=== PATIENT | male | born 1965 | race Caucasian/White ===

== ENCOUNTER 2021-05-15 08:09 | Day surgery (SDC) | payer OTHER ==
--- NOTE | 2021-05-15 08:09 | HP ---
DATE OF SURGERY: 05/15/2021 HISTORY OF PRESENT ILLNESS: The patient is a 55 year-old with no prior colonoscopy. No bloody stools. No change in bowel movements. No pain. Family history of grandmother had colon cancer. PAST MEDICAL HISTORY: He denied any chronic illnesses. PAST SURGICAL HISTORY: Appendectomy. MEDICATIONS: Krill oil. ALLERGIES: NKDA. FAMILY HISTORY: Colon cancer. SOCIAL HISTORY: No smoking. Social alcohol use, no abuse. REVIEW OF SYSTEMS: Fourteen systems reviewed. No chest pain or palpitations. Other systems negative or noncontributory as above and per preadmission questionnaire. PHYSICAL EXAMINATION: GENERAL: No acute distress. HEENT: Sclerae nonicteric. NECK: No JVD. CHEST: Equal excursion, nonlabored breathing. CVS: Regular rate and rhythm. ABDOMEN: Soft. No peritoneal signs. EXTREMITIES: No significant edema. NEURO: Alert, oriented, moving extremities symmetrically. RECTAL: Deferred timed to endoscopy exam. PSYCH: Appropriate mood and affect. IMPRESSION: Need for screening colonoscopy. I feel the patient is a candidate. Risks and benefits explained in detail including but not limited to bleeding or infection, risk of bowel injury or perforation possibly requiring open procedure, risk of missed or nondiagnosis or incomplete exam possibly requiring barium enema, other studies or procedures, general risk of anesthesia or sedation, risk of bowel prep, risk of perforation possible requiring open procedure but not limited to. He understands and agrees to the planned procedure and will proceed with outpatient screening colonoscopy.
[2021-05-15] MEDS ORDERED: Lactated Ringers 1,000 ML IV SCH (08:30)
[2021-05-15] MEDS ORDERED: Lactated Ringers 1,000 ML IV ONE ×2 (09:16→11:50)
[2021-05-15] MEDS ORDERED: DIPRIVAN 200 MG/20 ML IV ONE ×2 (11:12→11:46)
[2021-05-15 12:42] VITALS: BP 130/73; O2SAT 100
[2021-05-15 12:50] VITALS: PULSE 56
--- NOTE | 2021-05-15 15:24 | OP ---
SURGERY DATE/TIME: 05/15/2021 1121 PREOPERATIVE DIAGNOSIS: Need for screening colonoscopy. POSTOPERATIVE DIAGNOSES: 1) Polyps proximal transverse colon near hepatic flexure. 2) Ascending colon. 3) Fair but limited bowel prep. 4) A few diverticula. 5) Withdrawal time approximately 10 minutes. 6) Photo documented appendiceal orifice area and ileocecal valve. 7) ASA Class II. PROCEDURES: 1) Colonoscopy to cecum with hot biopsy vague raised area of cecum versus hyperplasia of the fold. 2) Hot biopsy polypectomy piecemeal fashion removal of two small polyps proximal ascending colon removed in piecemeal fashion with hot biopsy forceps with brief bursts of cautery. 3) Hot snare polypectomy in piecemeal fashion of a 5 to 6 mm polyp proximal ascending colon removed in two pieces with hot snare polypectomy. 4) Hot snare polypectomy of 4 to 4.5 cm proximal transverse colon polyp near the hepatic flexure. SURGEON: Dr. Arash Dueñas. ANESTHESIA: MAC. ESTIMATED BLOOD LOSS: Minimal. INDICATIONS: As noted above. Risks and benefits explained in detail but not limited to and consent obtained. DESCRIPTION OF PROCEDURE AND FINDINGS: The patient is taken to the endoscopy room. MAC anesthesia induced. After official time out and no disagreement with planned procedure, digital rectal exam did not reveal any rectal masses. He did have some small internal hemorrhoids. Video colonoscope inserted and passed up the tortuous sigmoid, descending, transverse and ascending colon. With external pressure the scope able to be passed to the cecum. Appendiceal orifice and valve were photo documented. Prep overall was fair but on the limited side with a fair amount of liquidy semisolid stool limiting the exam for very tiny lesions. There are no signs of any large polyps, masses or obstructing lesions. There was a little vague area in the cecum where this is just some hyperplasia of mucosa is removed with hot biopsy forceps with brief bursts of cautery. Good hemostasis noted. Otherwise there were two small polyps in the proximal ascending colon just right across from the ileocecal valve area itself and this is removed in two pieces with hot biopsy forceps with brief bursts of cautery in piecemeal fashion. There was a 5 to 6 mm polyp that was kind of on a fold and back towards the back side of the fold this was difficult to grasp that required removing in two pieces with hot snare polypectomy with very brief bursts of cautery elevating well away from abdominal wall. The scope is then carefully withdrawn. Near the hepatic flexure across from the ascending colon another small polyp of about 4 to 4.5 mm in size removed with hot snare polypectomy brief bursts of cautery and this appeared to be removed in toto. The scope is slowly and carefully withdrawn. He had a few small diverticula otherwise no signs of any large polyps, masses or obstructing lesions. He did have some small internal hemorrhoids. The scope is withdrawn. Withdrawal time had been around 10 minutes or so. There were no immediate complications. There was no family available to discuss the findings with at this time. He needs to hold any blood thinners for the next week. I will see him back in the office next week to go over the findings and decide on ultimate follow up given the piecemeal fashion, he will likely need a shorter term follow up given the piecemeal polypectomy removal and pending final path results.
== END 2021-05-15 12:58 | disposition home or self-care (01) ==
LOC: SDC 08:09
PROVIDERS: ATTEND Surgery
DX: Z12.11 Encounter for screening for malignant neoplasm of colon (principal); K57.30 Diverticulosis of large intestine without perforation or abscess without bleeding; D12.3 Benign neoplasm of transverse colon; D12.2 Benign neoplasm of ascending colon
CPT/HCPCS: J2704